=== PATIENT | male | born 1965 | race Caucasian/White ===

== ENCOUNTER → 2017-02-27 | Outpatient (CLI) | payer BC ==
[~2017-02-27] MED LIST: MULT-506 PO; OMEG10007 PO; TAMS0.4C38 PO
--- NOTE | 2017-02-27 10:53 | DIAGNOSTIC IMAGING REPORT ---
RIGHT SHOULDER 3 VIEWS CLINICAL HISTORY: Shoulder pain. Adhesive capsulitis. FINDINGS: 3 views of the right shoulder are obtained. No prior studies are available for comparison at the time of dictation. The skeletal structures appear osteopenic. No fracture or dislocation is seen. Productive degenerative changes identified at the acromioclavicular joint. There is arthritic change at the glenohumeral joint with sclerosis of the glenoid. A large spur is seen along the inferior aspect of the humeral head. A small calcified joint body is noted. Overlying soft tissues are normal in appearance. The visualized right lung parenchyma appears clear. IMPRESSION: 1. No acute bony abnormality is seen in the right shoulder. 2. Osteopenia, arthritic change, and calcified joint body as above. Electronically signed by: Jose Chahal M.D. 02/27/2017 10:52 AM Dictated Date/Time: 02/27/2017 10:51 AM
--- NOTE | 2017-02-27 11:13 | DIAGNOSTIC IMAGING REPORT ---
L SHOULDER MIN 2 VIEWS ROUTINE CLINICAL HISTORY: Bilateral shoulder pain. Adhesive capsulitis. COMPARISON: None FINDINGS: Apparent blunting of the left costophrenic angle is similar to chest of November 01, 2013. Alignment of the left shoulder is anatomic. No fracture. There is severe osteoporosis of the left acromioclavicular joint with joint space narrowing and extensive osteophytosis of the left glenohumeral joint. A 9 mm calcific density could reflect a joint body within the axillary recess. IMPRESSION: 1. No acute fracture. 2. Severe osteoarthritis of the left acromioclavicular joint and moderate osteoarthritis of the left glenohumeral joint. 3. 9 mm calcific density along the medial aspect of the left humeral neck which may reflect a joint body within the axillary recess. Electronically signed by: Kevin Lombardo M.D. 02/27/2017 11:12 AM Dictated Date/Time: 02/27/2017 10:52 AM
== END | disposition home or self-care (01) ==
LOC: C.RAD1850 10:33
PROVIDERS: ATTEND Family Medicine
DX: M75.00 Adhesive capsulitis of unspecified shoulder (principal); M25.811 Other specified joint disorders, right shoulder; M85.811 Other specified disorders of bone density and structure, right shoulder; M19.011 Primary osteoarthritis, right shoulder; M19.012 Primary osteoarthritis, left shoulder; M25.812 Other specified joint disorders, left shoulder

== ENCOUNTER → 2017-03-22 | Outpatient (CLI) | payer OTHER ==
--- NOTE | 2017-03-22 16:22 | DIAGNOSTIC IMAGING REPORT ---
CHEST 2 VIEWS ROUTINE CLINICAL HISTORY: R05 cough COMPARISON STUDY: 11/01/2013 FINDINGS: The bones soft tissues and hemidiaphragms are normal. The cardiomediastinal silhouette is normal. The lungs are clear. The pulmonary vasculature is normal. IMPRESSION: Negative chest. The above report was generated using voice recognition software. It may contain grammatical, syntax or spelling errors. Electronically signed by: Augie Callahan M.D. 03/22/2017 4:20 PM Dictated Date/Time: 03/22/2017 4:20 PM
== END | disposition home or self-care (01) ==
LOC: C.RAD1850 16:02
PROVIDERS: ATTEND Family Medicine
DX: R05 Cough (principal); R63.4 Abnormal weight loss

== ENCOUNTER → 2017-04-05 | Outpatient (CLI) | payer OTHER | END | disposition home or self-care (01) | LOC: C.PATHSPEC 17:19 | PROVIDERS: ATTEND Urology | DX: R31.9 Hematuria, unspecified (principal) ==

== ENCOUNTER → 2017-04-06 | Outpatient (CLI) | payer BC ==
[~2017-04-06] MED LIST changes: +OPTIRAY 320 IV PRN
--- NOTE | 2017-04-06 11:46 | DIAGNOSTIC IMAGING REPORT ---
ABD/PELVIS COMBO CT DOSE: 2102.12 mGycm HISTORY: Hematuria HEMATURIA *WAIVER* TECHNIQUE: Multiaxial CT images of the abdomen and pelvis were performed pre and post intravenous contrast enhancement. A dose lowering technique was utilized adhering to the principles of ALARA. COMPARISON STUDY: None. FINDINGS: Lung bases are clear. The unenhanced component of this study confirms the presence of a 3 cm left renal cyst. Intrauterine glands are normal. There are no abnormal findings of nephrocalcinosis. There are no significant bladder calcifications. Moderate bladder wall thickening is present. Enhanced component of the study shows liver to enhance uniformly throughout. Spleen is unremarkable. The pancreas enhances appropriately. Kidneys show unremarkable collecting systems bilaterally. There is no evidence for hydronephrosis. The left renal cyst shows no significant postcontrast enhancement. Ureters normal in course and caliber. Bowel pattern within the abdomen and pelvis is nonobstructive. IMPRESSION: 1. 3 cm left renal cyst. 2. Moderate nonspecific bladder wall thickening. 3. The urinary tracts are otherwise negative. 4. Remainder of the study is unremarkable. The above report was generated using voice recognition software. It may contain grammatical, syntax or spelling errors. Electronically signed by: Augie Callahan M.D. 04/06/2017 11:45 AM Dictated Date/Time: 04/06/2017 11:40 AM
== END | disposition home or self-care (01) ==
LOC: C.CTS 10:53
PROVIDERS: ATTEND Urology
DX: N28.1 Cyst of kidney, acquired (principal)